=== PATIENT | male | born 1965 ===

== ENCOUNTER → 2020-09-14 | Outpatient (CLI) | LOC: LABNPT 11:04 | PROVIDERS: ATTEND Internal Medicine | DX: Z20.822 Contact with and (suspected) exposure to COVID-19 (principal) | CPT/HCPCS: 87636 ==

== ENCOUNTER 2021-08-28 11:47 | Inpatient (IN) | payer SELFPAY ==
[~2021-08-28] VITALS: Ht 172.7 cm; Wt 78.8 kg
[2021-08-28] VITALS (11 sets, daily range): BP systolic 137–156; BP diastolic 81–97
[2021-08-28] MEDS ORDERED: diphenhydrAMINE 50 MG/ML INJ (BENADRYL) IVP PRN (12:00)
[2021-08-28] MEDS ORDERED: NS IV 1000 ML 1,000 ML IV SCH (12:00)
[2021-08-28] MEDS ORDERED: ONDANSETRON 4 MG/2 ML (SDV) Z0FRAN IV PRN (12:00)
[2021-08-28] MEDS ORDERED: LIDOCAINE/EPI 2% 1:200,00 (XYLOCAINE) 10 ML VIAL ONE (13:44)
--- NOTE | 2021-08-28 13:45 | Consultation - Surgery ---
History of Present Illness History of Present Illness Patient Consulted On(prabhjot/time) 08/28/21 13:39 Date Seen by Provider: Aug 28, 2021 Time Seen by Provider: 13:42 History of Present Illness Consult requested by Dr. Aguilar for perforated sigmoid diverticulitis with abscess. Patient is a 55 year old male at [facility]. Was doing well with conservative measures. Had worsening pain overnight. His wbc increased to 14 K. Patient was on clear liquids and just advanced to soft diet. Patient currently NPO. Pain in the Llq sharp. No radiation of pain. Not feeling well. Having some nausea and an episode of small bilious emesis. Ct scan done showing severe diverticulitis with abscess. Patient agreeable to surgery so had to be transferred to [place]. Allergies and Home Medications Allergies Coded Allergies: No Known Drug Allergies (Unverified , 08/28/21) Patient Home Medication List Home Medication List Reviewed: Yes Past Cqjpazl-Jpgmbd-Ralhxk Hx Patient Social History Smoking Status: Never a Smoker Alcohol Use?: Yes Have you traveled recently?: No Surgeries History of Surgeries: Yes (neck surgery) Respiratory History of Respiratory Disorde: No Cardiovascular History of Cardiac Disorders: No Neurological History of Neurological Disord: No Genitourinary History of Genitourinary Disor: No Gastrointestinal History of Gastrointestinal Di: No Musculoskeletal History of Musculoskeletal Dis: No Endocrine History of Endocrine Disorders: No HEENT History of HEENT Disorders: No Cancer History of Cancer: No Psychosocial History of Psychiatric Problem: No Integumentary History of Skin or Integumenta: No Reviewed Nursing Assessment Reviewed/Agree w Nursing PMH: Yes Family Medical History Significant Family History: No Pertinent Family Hx Review of Systems-General Constitutional: No diaphoresis, No weakness EENTM: No blurred vision, No double vision, No mouth pain Respiratory: No cough, No short of breath Cardiovascular: No chest pain, No palpitations Gastrointestinal: abdominal pain (LLQ), nausea, vomiting Genitourinary: No decreased output, No discharge Musculoskeletal: No back pain, No joint pain Skin: No change in color, No change in hair/nails Psychiatric/Neurological: Denies Anxiety, Denies Depressed, Denies Emotional Problems Physical Exam-General Problems Physical Exam Vital Signs Capillary Refill : General Appearance: WD/WN, no apparent distress (but uncomfortable) HEENT: PERRL/EOMI, normal ENT inspection Neck: non-tender, supple Respiratory: chest non-tender, no respiratory distress, no accessory muscle use Cardiovascular: regular rate, rhythm, no JVD Gastrointestinal: soft, tenderness (significant tenderness llq) Back: normal inspection, no CVA tenderness Extremities: normal range of motion, normal inspection, no pedal edema 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 He and understand risks and benefits and wishes to proceed. Clinical Quality Measures DVT/VTE Risk/Contraindication: Contraindications-Pharm: Other *list below* Other: or WEI LADD DO Aug 28, 2021 13:45
[2021-08-28] MEDS ORDERED: ONDANSETRON 4 MG/2 ML (SDV) Z0FRAN ONE (13:54)
[2021-08-28] MEDS ORDERED: proPOfol 200 MG/20 ML (DIPRIVAN) VIAL IV ONE (13:54)
[2021-08-28] MEDS ORDERED: LIDOCAINE PF 2% 5 ML (XYLOCAINE) VIAL ONE (13:54)
[2021-08-28] MEDS ORDERED: SUCCINYLCHOLINE INJ 20 MG/1 ML 10 ML VIAL ONE (13:54)
[2021-08-28] MEDS ORDERED: fentaNYL INJ 100 MCG/2 ML AMP ONE (13:54)
[2021-08-28] MEDS ORDERED: MIDAZOLAM 2 MG/2 ML (VERSED) VIAL ONE (13:54)
[2021-08-28] MEDS ORDERED: ROCURONIUM 50 MG/5 ML (ZEMURON) VIAL IV ONE (13:54)
[2021-08-28] MEDS: LACTATED RINGERS 1,000 ML IV PRN ×3 (14:08→16:44)
[2021-08-28] MEDS ORDERED: BUPIVACAINE 0.5% 30 ML (SENSORCAINE) VIAL ONE (16:11)
[2021-08-28] MEDS ORDERED: NEOSTIGMINE 3 MG/3 ML VIAL ONE (16:17)
[2021-08-28] MEDS ORDERED: GLYCOPYRROLATE 0.2 MG/ML (ROBINUL) 2 ML VIAL ONE (16:17)
[2021-08-28] MEDS ORDERED: RT-ALBUTEROL SULF 2.5 MG/3 ML PRE-MIX VIAL INH PRN (17:00)
[2021-08-28] MEDS ORDERED: SEVOFLURANE (ULTANE) 15 ML INHAL SOLN ONE (17:01)
[2021-08-28] MEDS ORDERED: MEPERIDINE (DEMEROL) INJ 50 MG/ML IVP ONE (17:15)
[2021-08-28] MEDS ORDERED: morphine INJ 10 MG/ML 1ML (SYR OR VIAL) IVP ONE (17:15)
[2021-08-28] MEDS ORDERED: ONDANSETRON 4 MG/2 ML (SDV) Z0FRAN IVP PRN (17:15)
[2021-08-28] MEDS ORDERED: PROMETHAZINE INJ 25 MG/ML (PHENERGAN) AMP IVP ONE (17:15)
[2021-08-28] MEDS ORDERED: HYDROmorphone 2 MG/ML VIAL (DILAUDID) IV ONE (17:15)
--- NOTE | 2021-08-28 17:18 | Progress Note-Post Operative ---
Post-Operative Progess Note Surgeon (s)/Conflicts Analyst (s) Surgeon WEI LADD DO Conflicts Analyst: na Pre-Operative Diagnosis perforated diverticulitis of sigmoid with abscess Post-Operative Diagnosis same Procedure & Operative Findings Date of Procedure 08/28/21 Procedure Performed/Findings laparoscopic hand assisted Jarvis procedure Anesthesia Type general Estimated Blood Loss Estimated blood loss (mL): minimal Specimens/Packing Specimens Removed sigmoid colon WEI LADD DO Aug 28, 2021 17:18
[2021-08-28] MEDS: LACTATED RINGERS 1,000 ML IV SCH (19:25)
[2021-08-28] MEDS: PIPERACILLIN SODIUM/TAZOBACTAM 4.5 GM in NS (IVPB) 100 ML IV SCH (19:27)
--- NOTE | 2021-08-28 19:46 | History & Physical ---
History of Present Illness HPI/Chief Complaint CC: Peritoneal abscess with sigmoid colon severe diverticulitis HPI: This is a 55yo male clinic patient of mine who has a h/o kidney stones and allergies who presents from [facility] with peritoneal abscesses found on repeat CT at [facility] following a 6 days hospital stay for severe diverticulitis with perforation. IV Zosyn and Flagyl had been maintained along with IVF and IV abx and NPO status with recent improvement until he began eating soft diet and pain returned and wbc increased prompting CT scan which revealed the abscesses. Options were IR placement of drain versus open procedure with wash out and sigmoidectomy and the decision was made to transfer to [facility] due to no OR crew at [facility] for stated surgery by Dr Rodriguez. Patient was seen following his surgery and he is stable. O x 3. Source: patient Exam Limitations: no limitations Date Seen 08/28/21 Time Seen by a Provider: 18:30 Attending Physician Maria L Aguilar DO PCP Admitting Physician: Maria L Aguilar DO Attending Physician: Maria L Aguilar DO Referring Physician Date of Admission Aug 28, 2021 at 13:20 Home Medications & Allergies Home Medications Reviewed patient Home Medication Reconciliation performed by pharmacy medication reconciliations compressor technician and/or nursing. Patients Allergies have been reviewed. 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 oz. kg; 26.42 BMI Method: General Appearance: No Apparent Distress, WD/WN Eyes: Bilateral Eye Normal Inspection, Bilateral Eye PERRL HEENT: PERRL/EOMI, Normal ENT Inspection, Pharynx Normal Neck: Full Range of Motion, Normal Inspection, Non Tender, Supple, Carotid Bruit Respiratory: Chest Non Tender, Lungs Clear, Normal Breath Sounds, No Accessory Muscle Use, No Respiratory Distress Cardiovascular: Regular Rate, Rhythm, No Edema, No Gallop, No JVD, No Murmur, Normal Peripheral Pulses Gastrointestinal: Normal Bowel Sounds, No Organomegaly, No Pulsatile Mass, Tenderness Back: Normal Inspection, No CVA Tenderness, No Vertebral Tenderness Extremity: Normal Capillary Refill, Normal Inspection, Normal Range of Motion, Non Tender, No Calf Tenderness, No Pedal Edema Neurologic/Psychiatric: Alert, Oriented x3, No Motor/Sensory Deficits, Normal Mood/Affect Skin: Normal Color, Warm/Dry Lymphatic: No Adenopathy Results Results/Procedures Labs Patient resulted labs reviewed. Assessment/Plan Admission Diagnosis Assessment: s/p sigmoidectomy with diverting colostomy due to severe diverticulitis recent perforation with abscess formation failed 6 days IVF IV abx Normal colonoscopy 07/2015 Allergies Kidney stones Plan: IVF Bowel rest Pain control Admission Status: Inpatient Order (span 2 midnights) Reason for Inpatient Admission: sigmoidectomy Clinical Quality Measures DVT/VTE Risk/Contraindication: Contraindications-Pharm: Other *list below* Other: or MARIA L AGUILAR DO Aug 28, 2021 19:46
[2021-08-28] MEDS: HYDROmorphone 2 MG/ML VIAL (DILAUDID) IV PRN ×2 (20:02→22:34)
[2021-08-28] MEDS: metroNIDAZOLE 500MG/100ML IVPB 100 ML IV SCH (21:38)
[2021-08-29] MEDS: PIPERACILLIN SODIUM/TAZOBACTAM 4.5 GM in NS (IVPB) 100 ML IV SCH ×3 (00:45→17:10)
[2021-08-29] MEDS: LACTATED RINGERS 1,000 ML IV SCH ×3 (00:46→15:48)
[2021-08-29] MEDS: HYDROmorphone 2 MG/ML VIAL (DILAUDID) IV PRN ×4 (00:50→15:41)
--- NOTE | 2021-08-29 02:16 | OPERATIVE REPORT ---
DATE OF SERVICE: 08/28/2021 PREOPERATIVE DIAGNOSIS: Perforated diverticulitis and sigmoid with abscess. POSTOPERATIVE DIAGNOSIS: Perforated diverticulitis and sigmoid with abscess. PROCEDURE: Laparoscopic hand-assisted Kierra procedure. SURGEON: Wei Rodriguez DO ANESTHESIA: General. ESTIMATED BLOOD LOSS: Minimal. COMPLICATIONS: None. INDICATIONS: The patient is a 55-year-old male who failed conservative management of perforated diverticulitis. He had worsening pain and increasing white count at outside facility and on repeat CT scan had large abscess. The patient was discussed options and he wished to proceed with surgical intervention. He understands and wishes to proceed along with his family, consent was signed in the chart. DESCRIPTION OF PROCEDURE: The patient was taken to the operating suite, was prepped and draped in sterile fashion. Timeout was performed. A midline incision was made for a hand port placement. A 15-blade scalpel was used to make a skin incision and cautery used to dissect down through the subcutaneous tissues. The fascia was then scored and opened and the hand port was then inserted. Pneumoperitoneum was achieved. Under direct visualization of the laparoscope, a 12 mm trocar was placed in the right lower quadrant and a 12 mm trocar was placed in left lower quadrant. Large phlegmon at the sigmoid colon with adhesions along the left gutter. Blunt dissection was used to gently mobilize these adhesions and a small abscess was drained. Distal to the phlegmon and abscess of the sigmoid colon, at the rectosigmoid junction, the colon was then bluntly dissected around. An Endo[employer] stapler was then fired across the distal portion of the colon. The colon was then mobilized along the white line of Toldt along the right gutter. We came proximal to a sigmoid perforation area, the colon was then dissected around and Endo-[employer] stapler was then fired across the proximal portion. LigaSure was then used to divide the mesentery until the phlegmonous mass and sigmoid colon were able to be removed, which demonstrated a large perforation with abscess cavity. The abdomen was then irrigated with copious amounts of irrigation. The left lower quadrant trocar site was then transformed to the colostomy site, skin and subcutaneous tissue was removed down to the fascia, which was then scored in a cruciate fashion. The muscle was divided and the posterior fascia was then divided. The colostomy end was then brought out through the colostomy site. A 19 Ayo drain was placed in the pelvis and brought out through the right lower quadrant trocar site. The fascia was then closed using 1-0 looped PDS once irrigation was used to irrigate the wound and skin was then loosely approximated. The 10 drape was then placed and the colostomy was then matured using 3-0 Vicryl sutures. The abdomen was then washed and dried. The colostomy appliance was applied. Sterile bandages were applied. The patient was taken to recovery room in stable condition. Job ID: [id number] DocumentID: [id number] Dictated Date: 08/28/2021 17:24:16 Reservation Manager Date: 08/29/2021 02:15:03 Dictated By: WEI RODRIGUEZ DO
[2021-08-29 03:00] VITALS: BP 126/84
[2021-08-29] MEDS: metroNIDAZOLE 500MG/100ML IVPB 100 ML IV SCH ×2 (05:12→15:47)
--- NOTE | 2021-08-29 06:07 | Progress Note ---
Subjective Date Seen by a Provider: Aug 29, 2021 Time Seen by a Provider: 10:00 Subjective/Events-last exam Patient doing well Pain controlled Horn will be DC today once he ambulates No nausea Labs reviewed Updated meds and labs Review of Systems Gastrointestinal: Abdominal Pain Objective Exam Last Set of Vital Signs Vital Signs Date Time Temp Pulse Resp B/P (MAP) Pulse Ox O2 Delivery O2 Flow Rate FiO2 08/29/21 03:00 36.5 68 18 126/84 (98) 93 Room Air 08/28/21 20:15 0.00 Capillary Refill : I&O Intake and Output 08/29/21 00:00 Intake Total 2100 ml Output Total 1660 ml Balance 440 ml Intake Oral 0 ml IV Total 2100 ml Output Urine Total 1500 ml Drainage Total 160 ml Daily Weight Change No General: Alert, Oriented X3, Cooperative, No Acute Distress Lungs: Clear to Auscultation, Normal Air Movement Heart: Regular Rate, Normal S1, Normal S2, No Murmurs Psych/Mental Status: Mental Status NL, Mood NL Assessment/Plan Assessment/Plan Assess & Plan/Chief Complaint Assessment: s/p sigmoidectomy with diverting colostomy POD # 1 due to severe diverticulitis recent perforation with abscess formation failed 6 days IVF IV abx Normal colonoscopy 07/2015 Allergies Kidney stones Plan: IVF Bowel rest Pain control Lovenox Clinical Quality Measures DVT/VTE Risk/Contraindication: Contraindications-Pharm: Other *list below* Other: or MARIBEL HILTON DO Aug 29, 2021 06:07
[2021-08-29 06:35] LABS: BASOPHILS % (AUTO) 0 % (0-10); EOSINOPHILS % (AUTO) 0 % (0-10); HEMATOCRIT 41 % (40-54); HEMOGLOBIN 14.3 g/dL (13.3-17.7); LYMPHOCYTES # (AUTO) 1.3 10^3/uL (1.0-4.0); LYMPHOCYTES % (AUTO) 8 % (12-44); MEAN CORPUSCULAR HEMOGLOBIN 32 pg (25-34); MEAN CORPUSCULAR HGB CONC 35 g/dL (32-36); MEAN CORPUSCULAR VOLUME 92 fL (80-99); MEAN PLATELET VOLUME 10.4 fL (9.0-12.2); MONOCYTES % (AUTO) 6 % (0-12); NEUTROPHILS # (AUTO) 13.2 10^3/uL (1.8-7.8); NEUTROPHILS % (AUTO) 85 % (42-75); PLATELET COUNT 261 10^3/uL (130-400); WHITE BLOOD COUNT 15.6 10^3/uL (4.3-11.0)
[2021-08-29 06:47] LABS: POTASSIUM 4.3 MMOL/L (3.6-5.0)
[2021-08-29 06:49] LABS: CALCIUM 8.5 MG/DL (8.5-10.1)
[2021-08-29 06:50] LABS: TOTAL PROTEIN 5.6 GM/DL (6.4-8.2)
[2021-08-29 06:52] LABS: BILIRUBIN,TOTAL 0.6 MG/DL (0.1-1.0)
[2021-08-29 06:53] LABS: CREATININE SERUM 0.8 MG/DL (0.60-1.30)
[2021-08-29 07:02] LABS: ATYPICAL LYMPHOCYTES 2 %; BAND NEUTROPHILS 1 %; LYMPHOCYTES % (MANUAL) 3 %; MONOCYTES % (MANUAL) 4 %; NEUTROPHILS % (MANUAL) 90 %
[2021-08-29 07:04] LABS: RBC MORPH NORMAL
[2021-08-29 07:49] VITALS: BP 131/79
[2021-08-29 12:05] VITALS: BP 122/77
--- NOTE | 2021-08-29 14:27 | Progress Note - Surgery ---
Subjective Date Seen by a Provider: Aug 29, 2021 Time Seen by a Provider: 09:15 Subjective/Events-last exam Patient feel a bit better today. Having postoperative pain. Pain is fairly controlled. He is using incentive spirometer. Adequate urine output. Denies any nausea vomiting fever sweats chills shortness of breath or chest pain. No output from colostomy yet. Drain serosanguineous Objective Exam Vital Signs Date Time Temp Pulse Resp B/P (MAP) Pulse Ox O2 Delivery O2 Flow Rate FiO2 08/29/21 12:05 36.4 69 18 122/77 (92) 96 Room Air 08/29/21 07:49 36.6 66 18 131/79 (96) 96 Room Air 08/29/21 07:47 Room Air 08/29/21 03:00 36.5 68 18 126/84 (98) 93 Room Air 08/28/21 23:17 37.4 96 20 137/81 (99) 94 Room Air 08/28/21 20:15 93 Room Air 0.00 08/28/21 20:12 Room Air 08/28/21 19:53 37.8 86 20 154/92 (112) 95 Room Air 08/28/21 18:11 37.2 96 19 145/83 (103) 92 Room Air 08/28/21 18:05 Room Air 08/28/21 17:57 20 151/93 (112) 93 Room Air 08/28/21 17:47 36.9 20 152/90 (110) 94 Room Air 08/28/21 17:37 17 156/90 (112) 99 OxyMask 10 08/28/21 17:36 OxyMask 10 08/28/21 17:27 20 153/97 (115) 96 OxyMask 10 08/28/21 17:17 18 151/96 (114) 97 OxyMask 10 08/28/21 17:07 36.3 24 147/82 (103) 95 OxyMask 10 08/28/21 17:07 OxyMask 10 08/28/21 16:44 36.6 73 96 08/28/21 16:00 Room Air I & O 08/29/21 07:00 Intake Total 3500 ml Output Total 2655 ml Balance 845 ml Capillary Refill : General Appearance: No Apparent Distress, WD/WN HEENT: PERRL/EOMI, Normal ENT Inspection, Pharynx Normal Neck: Full Range of Motion, Normal Inspection, Non Tender, Supple Respiratory: Chest Non Tender, Lungs Clear, No Accessory Muscle Use, No Respiratory Distress Cardiovascular: Regular Rate, Rhythm, No JVD, Normal Peripheral Pulses Gastrointestinal: soft, tenderness (Incisional tenderness in left lower quadrant, colostomy pink serous output minimal) Extremity: Normal Capillary Refill, Normal Inspection, Normal Range of Motion, Non Tender, No Calf Tenderness, No Pedal Edema Neurologic/Psychiatric: Alert, Oriented x3, No Motor/Sensory Deficits, Normal Mood/Affect Skin: Normal Color, Warm/Dry Lymphatic: No Adenopathy Results Lab Laboratory Tests 08/29/21 06:22: White Blood Count 15.6H, Red Blood Count 4.49, Hemoglobin 14.3, Hematocrit 41, Mean Corpuscular Volume 92, Mean Corpuscular Hemoglobin 32, Mean Corpuscular Hemoglobin Concent 35, Red Cell Distribution Width 12.5, Platelet Count 261, Mean Platelet Volume 10.4, Immature Granulocyte % (Auto) 0, Neutrophils (%) (Auto) 85H, Lymphocytes (%) (Auto) 8L, Monocytes (%) (Auto) 6, Eosinophils (%) (Auto) 0, Basophils (%) (Auto) 0, Neutrophils # (Auto) 13.2H, Lymphocytes # (Auto) 1.3, Monocytes # (Auto) 1.0, Eosinophils # (Auto) 0.0, Basophils # (Auto) 0.0, Immature Granulocyte # (Auto) 0.1, Neutrophils % (Manual) 90, Lymphocytes % (Manual) 3, Monocytes % (Manual) 4, Band Neutrophils 1, Atypical Lymphocytes 2, Blood Morphology Comment NORMAL, Sodium Level 137, Potassium Level 4.3, Chloride Level 104, Carbon Dioxide Level 23, Anion Gap 10, Blood Urea Nitrogen 12, Creatinine 0.80, Estimat Glomerular Filtration Rate 103, BUN/Creatinine Ratio 15, Glucose Level 115H, Calcium Level 8.5, Corrected Calcium 9.3, Total Bilirubin 0.6, Aspartate Amino Transf (AST/SGOT) 15, Alanine Aminotransferase (ALT/SGPT) 13, Alkaline Phosphatase 48, Total Protein 5.6L, Albumin 3.0L Microbiology 08/28/21 MRSA Screen - Final, Complete MRSA not isolated Assessment/Plan Assessment/Plan Assessment/Plan perforated sigmoid diverticulitis with abscess nausea and vomiting llq abdominal pain Is post laparoscopic hand-assisted Jarvis Clears IV fluids Continue IV abx Incentive spirometer SCDs Ambulate [facility] Quality Measures DVT/VTE Risk/Contraindication: Contraindications-Pharm: Other *list below* Other: or WEI LADD DO Aug 29, 2021 14:27
--- NOTE | 2021-08-29 14:31 | Anesthesia-General Post-Op ---
General Patient Condition Mental Status/LOC: Same as Preop Cardiovascular: Satisfactory Nausea/Vomiting: Absent Respiratory: Satisfactory Pain: Controlled Complications: Absent Post Op Complications Complications None Follow Up Care/Instructions Patient Instructions None needed. Anesthesia/Patient Condition Patient Condition Patient is doing well, no complaints, stable vital signs, no apparent adverse anesthesia problems. No complications reported per nursing. ARMAND ZAMAN CRNA Aug 29, 2021 14:31
[2021-08-29] MEDS: HYDROcodone/APAP 5 MG/325 MG (LORTAB) TAB PO PRN ×2 (17:31→21:01)
[2021-08-29 19:44] VITALS: BP 142/85
--- NOTE | 2021-08-29 20:30 | Discharge Summary ---
Diagnosis/Chief Complaint Date of Admission Aug 28, 2021 at 13:20 Date of Discharge Discharge Date: Aug 29, 2021 Discharge Diagnosis Assessment: s/p sigmoidectomy with diverting colostomy due to severe diverticulitis recent perforation with abscess formation failed 6 days IVF IV abx Normal colonoscopy 07/2015 Allergies Kidney stones Discharge Summary Discharge Physical Examination Allergies: Coded Allergies: No Known Drug Allergies (Unverified , 08/28/21) Vitals & I&Os Vital Signs Date Time Temp Pulse Resp B/P (MAP) Pulse Ox O2 Delivery O2 Flow Rate FiO2 08/29/21 19:44 36.6 71 20 142/85 (104) 95 Room Air 08/29/21 19:11 0.00 General Appearance: Alert, Oriented X3, Cooperative Respiratory: Clear to Auscultation Cardiovascular: Regular Rate Psych/Mental Status: Mental Status NL Hospital Course Was the Problem List Reviewed?: Yes Short course after admitted following sigmoidectomy with abscess resolution by Dr Rodriguez. Pain was an issue but IVF and IV Abx maintained. Patient was deemed stable to return to [facility] at his request. Labs (last 24 hrs) Laboratory Tests 08/29/21 06:22: White Blood Count 15.6H, Red Blood Count 4.49, Hemoglobin 14.3, Hematocrit 41, Mean Corpuscular Volume 92, Mean Corpuscular Hemoglobin 32, Mean Corpuscular Hemoglobin Concent 35, Red Cell Distribution Width 12.5, Platelet Count 261, Mean Platelet Volume 10.4, Immature Granulocyte % (Auto) 0, Neutrophils (%) (Auto) 85H, Lymphocytes (%) (Auto) 8L, Monocytes (%) (Auto) 6, Eosinophils (%) (Auto) 0, Basophils (%) (Auto) 0, Neutrophils # (Auto) 13.2H, Lymphocytes # (Auto) 1.3, Monocytes # (Auto) 1.0, Eosinophils # (Auto) 0.0, Basophils # (Auto) 0.0, Immature Granulocyte # (Auto) 0.1, Neutrophils % (Manual) 90, Lymphocytes % (Manual) 3, Monocytes % (Manual) 4, Band Neutrophils 1, Atypical Lymphocytes 2, Blood Morphology Comment NORMAL, Sodium Level 137, Potassium Level 4.3, Chloride Level 104, Carbon Dioxide Level 23, Anion Gap 10, Blood Urea Nitrogen 12, Creatinine 0.80, Estimat Glomerular Filtration Rate 103, BUN/Creatinine Ratio 15, Glucose Level 115H, Calcium Level 8.5, Corrected Calcium 9.3, Total Bilirubin 0.6, Aspartate Amino Transf (AST/SGOT) 15, Alanine Aminotransferase (ALT/SGPT) 13, Alkaline Phosphatase 48, Total Protein 5.6L, Albumin 3.0L Microbiology 08/28/21 MRSA Screen - Final, Complete MRSA not isolated Pending Labs Microbiology Date/Time Source Procedure Growth Status 08/28/21 13:40 Nasal MRSA Screen - Final MRSA not isolated Complete Laboratory Tests 08/29/21 06:22: White Blood Count 15.6, Red Blood Count 4.49, Hemoglobin 14.3, Hematocrit 41, Mean Corpuscular Volume 92, Mean Corpuscular Hemoglobin 32, Mean Corpuscular Hemoglobin Concent 35, Red Cell Distribution Width 12.5, Platelet Count 261, Mean Platelet Volume 10.4, Immature Granulocyte % (Auto) 0, Neutrophils (%) (Auto) 85, Lymphocytes (%) (Auto) 8, Monocytes (%) (Auto) 6, Eosinophils (%) (Auto) 0, Basophils (%) (Auto) 0, Neutrophils # (Auto) 13.2, Lymphocytes # (Auto) 1.3, Monocytes # (Auto) 1.0, Eosinophils # (Auto) 0.0, Basophils # (Auto) 0.0, Immature Granulocyte # (Auto) 0.1, Neutrophils % (Manual) 90, Lymphocytes % (Manual) 3, Monocytes % (Manual) 4, Band Neutrophils 1, Atypical Lymphocytes 2, Blood Morphology Comment NORMAL, Sodium Level 137, Potassium Level 4.3, Chloride Level 104, Carbon Dioxide Level 23, Anion Gap 10, Blood Urea Nitrogen 12, Creatinine 0.80, Estimat Glomerular Filtration Rate 103, BUN/Creatinine Ratio 15, Glucose Level 115, Calcium Level 8.5, Corrected Calcium 9.3, Total Bilirubin 0.6, Aspartate Amino Transf (AST/SGOT) 15, Alanine Aminotransferase (ALT/SGPT) 13, Alkaline Phosphatase 48, Total Protein 5.6, Albumin 3.0 Discharge Instructions to patient/family Please see electronic discharge instructions given to patient. Clinical Quality Measures DVT/VTE Risk/Contraindication: Contraindications-Pharm: Other *list below* Other: or MARIBEL HILTON DO Aug 29, 2021 20:30
[2021-08-29] MEDS ORDERED: HYDROmorphone 2 MG/ML VIAL (DILAUDID) IV ONE (20:45)
[2021-08-29] MEDS ORDERED: ENOXAPARIN 40 MG/0.4 ML (LOVENOX) SYR SC SCH (21:00)
[2021-08-29 21:50] VITALS: BP 142/85
== END 2021-08-29 21:45 | disposition short-term general hospital (02) | DRG 331 ==
LOC: 4TH 13:20
PROVIDERS: ADMIT Internal Medicine; ATTEND Internal Medicine
PROC: 0DBN4ZZ Excision of Sigmoid Colon, Percutaneous Endoscopic Approach (ICD-10-PCS; principal; 2021-08-28 14:12)
DX: K57.20 Diverticulitis of large intestine with perforation and abscess without bleeding (principal); N20.0 Calculus of kidney
CPT/HCPCS: 36415; 80053; 85007; 85027; 87081; 94664; 94760

== ENCOUNTER 2021-11-17 05:39 | Outpatient (CLI) | payer SELFPAY ==
[~2021-11-17] VITALS: Ht 172.7 cm; Wt 72.6 kg
[2021-11-17] MEDS ORDERED: CETI10CA PO (12:03)
== END 2021-11-17 12:05 | disposition home or self-care (01) ==
LOC: PREOP 05:39
PROVIDERS: ATTEND Surgery
DX: Z01.818 Encounter for other preprocedural examination (principal)

== ENCOUNTER 2021-11-30 09:01 | Day surgery (SDC) | payer SELFPAY ==
[~2021-11-30] VITALS: Ht 172.7 cm; Wt 72.6 kg
[~2021-11-30 09:01] MED LIST: CETI10CA PO
[2021-11-30] MEDS ORDERED: LACTATED RINGERS 1,000 ML IV STA (09:06)
[2021-11-30 09:15] VITALS: BP 150/104
[2021-11-30] MEDS ORDERED: FLEET ENEMA ADULT 1 EA BTL ONE (09:30)
[2021-11-30] MEDS ORDERED: FLEET ENEMA ADULT 1 EA BTL PR ONE (09:45)
[2021-11-30] MEDS ORDERED: PROPOFOL INJECTION 50 ML IV ONE (10:54)
--- NOTE | 2021-11-30 11:19 | Anesthesia-General Post-Op ---
MAC Patient Condition Mental Status/LOC: Same as Preop Cardiovascular: Satisfactory Nausea/Vomiting: Absent Respiratory: Satisfactory Pain: Controlled Complications: Absent Post Op Complications Complications None Follow Up Care/Instructions Patient Instructions None needed. Anesthesiology Discharge Order Discharge Order Patient is doing well, no complaints, stable vital signs, no apparent adverse anesthesia problems. No complications reported per nursing. MARIA D GARCIA CRNA Nov 30, 2021 11:19
--- NOTE | 2021-11-30 11:20 | Discharge Inst-Simple/Standard ---
Discharge Inst-Standard Patient Instructions/Follow Up Plan of Care/Instructions/FU: 1-2 weeks Jennifer Activity as Tolerated: Yes Discharge Diet: Regular Diet WEI LADD DO Nov 30, 2021 11:20
[2021-11-30 11:23] VITALS: BP 117/79
[2021-11-30 11:28] VITALS: BP 122/82
[2021-11-30 11:35] VITALS: BP 122/82
[2021-11-30 11:49] VITALS: BP 122/82
--- NOTE | 2021-11-30 18:23 | OPERATIVE REPORT ---
DATE OF SERVICE: 11/30/2021 PREOPERATIVE DIAGNOSIS: History of diverticulitis. POSTOPERATIVE DIAGNOSIS: Normal colon. PROCEDURE: Colonoscopy. SURGEON: Wei Rodriguez DO ANESTHESIA: Per SPRAY FOAM INSTALLER. ESTIMATED BLOOD LOSS: None. COMPLICATIONS: None. INDICATIONS: The patient is a 56-year-old male who had perforated diverticulitis. He had Kierra procedure. He is planning on having reversal. We discussed having a colonoscopy performed. He understands and wishes to proceed. Consent was signed in the chart. DESCRIPTION OF PROCEDURE: The patient was taken to the endoscopy suite, placed in the supine position. The timeout was performed. The digital rectal exam was performed through the ostomy in order to dilate the ostomy. Scope was then inserted into the colostomy and advanced all the way to cecum with minimal difficulty. Prep was adequate. Scope was slowly retracted back. No polyps, masses or ulcerations within the cecum, ascending, transverse, descending and sigmoid colon. Digital rectal exam was performed. No palpable polyps, masses or ulcerations. Scope was inserted in the rectum and advanced all the way to the end of the rectal stump. There was some nonuse colitis appearance and also irritation from the enema. Scope was slowly retracted back noting no polyps, masses or ulcerations. The patient tolerated the procedure well without any complications, taken to recovery room in stable condition. RECOMMENDATIONS: The patient will have reversal planned. We would plan repeat colonoscopy in 5-10 years depending upon if he has family history of colon cancer, personal history of polyps, which would then be 5 years. Job ID: [id number] DocumentID: [id number] Dictated Date: 11/30/2021 11:24:10 Document Clerk Date: 11/30/2021 18:22:51 Dictated By: WEI RODRIGUEZ DO
== END 2021-11-30 12:00 | disposition home or self-care (01) ==
LOC: ENDO 09:01
PROVIDERS: ATTEND Surgery
DX: Z87.19 Personal history of other diseases of the digestive system (principal)

== ENCOUNTER 2021-12-30 05:30 | Outpatient (CLI) | payer SELFPAY ==
[~2021-12-30] VITALS: Ht 172.7 cm; Wt 77.0 kg
== END 2021-12-30 13:41 | disposition home or self-care (01) ==
LOC: PREOP 05:30
PROVIDERS: ATTEND Surgery
DX: Z01.818 Encounter for other preprocedural examination (principal)

== ENCOUNTER 2022-01-06 06:49 | Inpatient (IN) | payer SELFPAY ==
[2022-01-06] VITALS (11 sets, daily range): BP systolic 125–164; BP diastolic 66–109
[~2022-01-06] VITALS: Ht 172 cm; Wt 74.8 kg
[2022-01-06] MEDS ORDERED: metroNIDAZOLE 500MG/100ML IVPB 100 ML IV ONE (07:15)
[2022-01-06] MEDS ORDERED: ceFAZolin INJECTION 2,000 MG in NS (IVPB) 50 ML IV ONE (07:15)
[2022-01-06] MEDS: LACTATED RINGERS 1,000 ML IV PRN ×3 (07:30→12:00)
[2022-01-06] MEDS ORDERED: fentaNYL INJ 100 MCG/2 ML AMP ONE (08:23)
[2022-01-06] MEDS ORDERED: MIDAZOLAM 2 MG/2 ML (VERSED) VIAL ONE (08:24)
--- NOTE | 2022-01-06 08:30 | Progress Note-Pre Operative ---
Pre-Operative Progress Note Date of Available H&P: Dec 15, 2021 Date H&P Reviewed: Jan 06, 2022 Time H&P Reviewed: 08:29 History & Physical: H&P Reviewed, Patient Examed, No changes noted Pre-Operative Diagnosis: Colostomy. Hx of perferated diverticulitis WEI LADD DO Jan 06, 2022 08:30
[2022-01-06] MEDS ORDERED: LIDOCAINE/EPI 1%-1:100,000 (XYLOCAINE) 10 ML ONE (08:39)
[2022-01-06] MEDS ORDERED: proPOfol 200 MG/20 ML (DIPRIVAN) VIAL IV ONE (09:00)
[2022-01-06] MEDS ORDERED: ONDANSETRON 4 MG/2 ML (SDV) Z0FRAN ONE (09:00)
[2022-01-06] MEDS ORDERED: LIDOCAINE PF 2% 5 ML (XYLOCAINE) VIAL ONE (09:00)
[2022-01-06] MEDS ORDERED: HYDROmorphone 2 MG/ML VIAL (DILAUDID) ONE (10:26)
[2022-01-06] MEDS ORDERED: ROCURONIUM 10 MG/ML 5 ML SYRINGE IV ONE (10:58)
[2022-01-06] MEDS ORDERED: SEVOFLURANE (ULTANE) 15 ML INHAL SOLN ONE (11:54)
[2022-01-06] MEDS ORDERED: GLYCOPYRROLATE 0.2 MG/ML (ROBINUL) 2 ML VIAL ONE ×2 (12:01→12:02)
[2022-01-06] MEDS ORDERED: NEOSTIGMINE (BLOXIVERZ ) 1 MG/1ML 10 ML VIAL ONE (12:01)
[2022-01-06] MEDS: LACTATED RINGERS 1,000 ML IV SCH ×2 (12:23→19:51)
--- NOTE | 2022-01-06 12:29 | Anesthesia-General Post-Op ---
General Patient Condition Mental Status/LOC: Same as Preop Cardiovascular: Satisfactory Nausea/Vomiting: Absent Respiratory: Satisfactory Pain: Controlled Complications: Absent Post Op Complications Complications None Follow Up Care/Instructions Patient Instructions None needed. Anesthesia/Patient Condition Patient Condition Patient is doing well, no complaints, stable vital signs, no apparent adverse anesthesia problems. No complications reported per nursing. LESLEE NORWOOD CRNA Jan 06, 2022 12:29
[2022-01-06] MEDS ORDERED: ONDANSETRON 4 MG/2 ML (SDV) Z0FRAN IVP PRN ×2 (12:30→12:45)
[2022-01-06] MEDS ORDERED: fentaNYL INJ 100 MCG/2 ML AMP IVP ONE (12:45)
[2022-01-06] MEDS ORDERED: HYDROmorphone 2 MG/ML VIAL (DILAUDID) IV ONE (12:45)
[2022-01-06] MEDS: metroNIDAZOLE 500MG/100ML IVPB 100 ML IV SCH ×2 (14:55→22:31)
[2022-01-06] MEDS: morphine INJ 4 MG/ML 1 ML (VIAL/SYRINGE) IVP PRN ×2 (15:22→20:09)
[2022-01-06] MEDS: ceFAZolin INJECTION 2,000 MG in NS (IVPB) 50 ML IV SCH ×2 (16:07→22:48)
[2022-01-06] MEDS: HYDROcodone/APAP 5 MG/325 MG (LORTAB) TAB PO PRN ×2 (17:09→22:30)
[2022-01-07] VITALS: BP 124/66
--- NOTE | 2022-01-07 01:15 | OPERATIVE REPORT ---
DATE OF SERVICE: 01/06/2022 PREOPERATIVE DIAGNOSES: Possible sigmoid stricture. POSTOPERATIVE DIAGNOSES: Mild sigmoid stricture. PROCEDURE: Flexible sigmoidoscopy. SURGEON: Oz Ackerman DO [employer] SALES REPRESENTATIVE: None. ANESTHESIA: The patient was already undergoing procedure. SPECIMENS: None. BLOOD LOSS: Scant. INDICATION FOR PROCEDURE: The patient is a 56-year-old male who was in the operating room for colostomy reversal. We were having difficulty getting the dilators up and through the sigmoid to be able to do the anastomosis; therefore, needed a flexible sigmoidoscopy to look at this. FINDINGS: The patient had some mild stricturing just from the nonuse of this portion of the colon. PROCEDURE NOTE: The patient was already in the OR getting procedure done, we had called endoscopy crew up to bring the scope, so we could do a sigmoidoscopy and look at this area, for a while we were unable to get the dilators up, attempted 25 and even 28 and could not even get the 25 up to the end of the sigmoid colon. Advanced the scope insufflating, able to get to the end, could see the end and actually see one of the elmer. Dr. Rodriguez could see the light from the scope. It was pretty much straight shot and did have a little bit of a curve to the right and then up, but there was nothing blocking, but now we knew the way to insert the dilator, we were able to insert the dilators to finish the procedure. The scope was removed, procedure confirmed and then we actually put the scope back up and took a look at the anastomosis, looked good and there was no leak. Scope was removed and the other procedure was finished. Job ID: [id number] DocumentID: [id number] Dictated Date: 01/06/2022 16:12:37 Senior Linux Engineer Date: 01/07/2022 01:14:11 Dictated By: OZ ACKERMAN DO MTDD
--- NOTE | 2022-01-07 02:49 | OPERATIVE REPORT ---
DATE OF SERVICE: 01/06/2022 PREOPERATIVE DIAGNOSES: Colostomy and history of perforated diverticulitis. POSTOPERATIVE DIAGNOSES: Colostomy and history of perforated diverticulitis. PROCEDURE: Laparoscopic hand-assisted colostomy takedown with end-to-end anastomosis, a 1-hour of lysis of adhesions. SURGEON: Wei Rodriguez DO INDUSTRIAL ENG: Dr. Oz Ackerman, assisted in retraction, dissection and closure. See his dictation for flexible sigmoidoscopy. ANESTHESIA: General. ESTIMATED BLOOD LOSS: Minimal. COMPLICATIONS: None. INDICATIONS: The patient is a 56-year-old male who had a history of perforated diverticulitis and Kierra procedure. He understands risks and benefits of procedure and wished to proceed. Consent was signed in the chart. DESCRIPTION OF PROCEDURE: The patient was taken to the operating suite, was prepped and draped in sterile fashion. Timeout was performed. Local anesthetic was infiltrated in left upper quadrant. Scalpel was used to make a skin incision and cautery used to dissect down through the subcutaneous tissues to the fascia, scored, opened and divided. The muscle was scored in the posterior fascia and divided. The abdomen was then entered. The michelle trocar was inserted and pneumoperitoneum was achieved. Scope was inserted, noting multiple adhesions with small bowel stuck to the abdominal wall. Under direct visualization of the laparoscope, a 5 mm trocar was placed in the right upper quadrant and one was able to be placed in the right lower quadrant. The LigaSure was used to start dividing significant adhesions and had these blunt dissection as well, which took approximately 1 hour. Once all the adhesions were taken down from the abdominal wall, the dissection around the colostomy was then performed fraying it up to the abdominal wall. At this time, attention was then moved to the colostomy, which an elliptical incision was made around the colostomy and cautery used to dissect down through subcutaneous tissues until the colostomy was completely mobilized and freed and the bowel was able to be brought out. The 29 anvil was inserted into the colon and using a linear 55 stapler, the colon was then divided. The anvil was then brought out through the end of the staple line. This was then placed back within the abdomen. The fascia of the colostomy was then closed using 1-0 Prolene in a running fashion. The abdomen was then reinsufflated, had some difficulty getting enough length; therefore, the colon had to be mobilized along the left colon, up to the splenic flexure, which we made a midline incision using a hand Gelport. This also allowed us to mobilize the small bowel that was stuck down within the pelvis. Once adequate length was obtained for the colon to make the anastomosis, Dr. Ackerman went down below and started using dilators, but seemed to have a tight turn. Therefore, he performed flexible sigmoidoscopy. He was then able to do serial dilations and the 29 EEA stapler was inserted and the anastomosis was then created. The pelvis was then filled with fluid, air test was performed demonstrating no leak. The irrigation was then suctioned. The midline incision over the hand port, the fascia was then closed using 0 looped PDS. The wound was then irrigated and suctioned. Scope was then closed with elmer. The abdomen was then reinsufflated. The abdomen was then inspected. No other pathology noted. The skin was then closed using elmer, except for the left upper quadrant, which the fascia was then closed using 0 Vicryl suture in a [id number] fashion, closure, then, the skin was then closed with elmer. The abdomen was washed and dried and Band-Aids were placed over the incisions and sterile bandages. The patient tolerated the procedure well without any complications. He was taken to recovery room in stable condition. Job ID: [id number] DocumentID: [id number] Dictated Date: 01/06/2022 23:47:54 Supervisor Malted Milk Date: 01/07/2022 02:48:24 Dictated By: WEI RODRIGUEZ DO
[2022-01-07 04:02] VITALS: BP 121/60
[2022-01-07] MEDS: LACTATED RINGERS 1,000 ML IV SCH ×4 (04:58→22:05)
[2022-01-07 05:40] LABS: BASOPHILS % (AUTO) 0 % (0-10); EOSINOPHILS % (AUTO) 0 % (0-10); HEMATOCRIT 44 % (40-54); HEMOGLOBIN 15.1 g/dL (13.3-17.7); LYMPHOCYTES # (AUTO) 1.3 10^3/uL (1.0-4.0); LYMPHOCYTES % (AUTO) 9 % (12-44); MEAN CORPUSCULAR HEMOGLOBIN 32 pg (25-34); MEAN CORPUSCULAR HGB CONC 34 g/dL (32-36); MEAN CORPUSCULAR VOLUME 92 fL (80-99); MEAN PLATELET VOLUME 10.3 fL (9.0-12.2); MONOCYTES # (AUTO) 1.5 10^3/uL (0.0-1.0); MONOCYTES % (AUTO) 10 % (0-12); NEUTROPHILS # (AUTO) 11.6 10^3/uL (1.8-7.8); NEUTROPHILS % (AUTO) 80 % (42-75); PLATELET COUNT 180 10^3/uL (130-400); WHITE BLOOD COUNT 14.5 10^3/uL (4.3-11.0)
[2022-01-07 05:56] LABS: ALBUMIN 3.2 GM/DL (3.2-4.5)
[2022-01-07 05:57] LABS: POTASSIUM 4.2 MMOL/L (3.6-5.0)
[2022-01-07 05:58] LABS: CALCIUM 8.3 MG/DL (8.5-10.1)
[2022-01-07 05:59] LABS: TOTAL PROTEIN 5.4 GM/DL (6.4-8.2)
[2022-01-07 06:01] LABS: BILIRUBIN,TOTAL 0.5 MG/DL (0.1-1.0)
[2022-01-07 06:03] LABS: CREATININE SERUM 0.8 MG/DL (0.60-1.30)
[2022-01-07 06:04] LABS: LYMPHOCYTES % (MANUAL) 8 %; MONOCYTES % (MANUAL) 11 %; NEUTROPHILS % (MANUAL) 81 %; RBC MORPH NORMAL
[2022-01-07 06:05] LABS: MAGNESIUM 1.7 MG/DL (1.6-2.4)
--- NOTE | 2022-01-07 07:25 | Progress Note - Surgery ---
ASTER RASMUSSEN 01/07/22 0725: Subjective Date Seen by a Provider: Jan 07, 2022 Time Seen by a Provider: 07:25 Subjective/Events-last exam 56 year old male admitted post op Laparoscopic hand-assisted colostomy takedown with end-to-end anastomosis, a 1-hour of lysis of adhesions, without complicat ions. Pt reports pain is 1/10 and has not had a bowel movement or passed flatus. Pt still has catheter in. Pt on ensure and ice chips only. Pt is on 2L oxygen NC. Pt has not tried to ambulate and denies nausea, vomiting, lightheadedness, dizziness, chest pain or SOB. No other complaints. Focused Exam Respiratory: Lungs Clear, Normal Breath Sounds, No Respiratory Distress Cardiovascular: Regular Rate, Rhythm, No Edema, Normal Peripheral Pulses Skin: normal color, warm/dry Objective Exam Vital Signs Date Time Temp Pulse Resp B/P (MAP) Pulse Ox O2 Delivery O2 Flow Rate FiO2 01/07/22 04:02 36.9 98 16 121/60 (80) 95 Nasal Cannula 2.00 01/07/22 00:00 37.2 99 16 124/66 (85) 95 Nasal Cannula 2.00 01/06/22 20:00 37.7 116 19 125/66 (85) 95 Nasal Cannula 2.00 01/06/22 15:48 98 Nasal Cannula 2.00 01/06/22 15:30 36.7 98 18 133/72 (92) 98 Nasal Cannula 2.00 01/06/22 14:35 36.4 90 16 138/79 (98) 95 Nasal Cannula 2.00 01/06/22 13:30 Nasal Cannula 2.00 01/06/22 13:15 Room Air 01/06/22 13:10 36.5 14 137/94 (108) 95 Room Air 01/06/22 13:00 14 142/82 (102) 97 Room Air 01/06/22 12:52 OxyMask 2.00 01/06/22 12:50 14 141/95 (110) 99 OxyMask 2.00 01/06/22 12:40 14 134/94 (107) 100 OxyMask 4.00 01/06/22 12:37 OxyMask 4.00 01/06/22 12:30 14 146/90 (108) 100 OxyMask 4.00 01/06/22 12:22 36.6 16 164/106 (125) 98 OxyMask 6.00 01/06/22 12:22 OxyMask 6.00 01/06/22 12:00 36.4 90 16 138/79 (98) 95 Nasal Cannula 2.00 01/06/22 07:20 98 Room Air 01/06/22 07:20 36.0 100 20 151/109 (123) 98 Room Air I & O 01/07/22 07:00 Intake Total 5680 ml Output Total 1100 ml Balance 4580 ml Capillary Refill : General Appearance: No Apparent Distress, WD/WN HEENT: PERRL/EOMI Respiratory: Chest Non Tender, Lungs Clear, Normal Breath Sounds, No Accessory Muscle Use, No Respiratory Distress Cardiovascular: Regular Rate, Rhythm, No Edema, Normal Peripheral Pulses Gastrointestinal: No guarding, No hepatomegaly, No spleenomegaly Neurologic/Psychiatric: Alert, Oriented x3 Skin: Normal Color, Warm/Dry Results Lab Laboratory Tests 01/07/22 05:36: White Blood Count 14.5H, Red Blood Count 4.78, Hemoglobin 15.1, Hematocrit 44, Mean Corpuscular Volume 92, Mean Corpuscular Hemoglobin 32, Mean Corpuscular Hemoglobin Concent 34, Red Cell Distribution Width 13.2, Platelet Count 180, Mean Platelet Volume 10.3, Immature Granulocyte % (Auto) 0, Neutrophils (%) (Auto) 80H, Lymphocytes (%) (Auto) 9L, Monocytes (%) (Auto) 10, Eosinophils (%) (Auto) 0, Basophils (%) (Auto) 0, Neutrophils # (Auto) 11.6H, Lymphocytes # (Auto) 1.3, Monocytes # (Auto) 1.5H, Eosinophils # (Auto) 0.0, Basophils # (Auto) 0.0, Immature Granulocyte # (Auto) 0.1, Neutrophils % (Manual) 81, Lymphocytes % (Manual) 8, Monocytes % (Manual) 11, Blood Morphology Comment NORMAL, Sodium Level 137, Potassium Level 4.2, Chloride Level 107, Carbon Dioxide Level 22, Anion Gap 8, Blood Urea Nitrogen 13, Creatinine 0.80, Estimat Glomerular Filtration Rate 103, BUN/Creatinine Ratio 16, Glucose Level 120H, Calcium Level 8.3L, Corrected Calcium 8.9, Magnesium Level 1.7, Total Bilirubin 0.5, Aspartate Amino Transf (AST/SGOT) 22, Alanine Aminotransferase (ALT/SGPT) 25, Alkaline Phosphatase 35L, Total Protein 5.4L, Albumin 3.2 Assessment/Plan Assessment/Plan Assessment/Plan Laparoscopic hand-assisted colostomy takedown with end-to-end anastomosis, a 1- hour of lysis of adhesions without complications Continue to monitor for pain, bowel movements/faltus Continue with ice chips and ensure only WEI LADD DO 01/07/22 1427: Subjective Subjective/Events-last exam Pain controlled. No flatus or bm. Using incentive spirometer some. Jimenez in place. Tolerating ice chips. Denies n/v fever sweats chills shortness of breath or chest pain. Objective Exam General Appearance: No Apparent Distress, WD/WN HEENT: PERRL/EOMI, Normal ENT Inspection Neck: Full Range of Motion, Normal Inspection Respiratory: Chest Non Tender, No Accessory Muscle Use, No Respiratory Distress Cardiovascular: Regular Rate, Rhythm, No JVD Gastrointestinal: non tender, soft, other (incisional tenderness) Extremity: Non Tender, No Calf Tenderness Neurologic/Psychiatric: Alert, Oriented x3 Skin: Normal Color, Warm/Dry Lymphatic: No Adenopathy Assessment/Plan Assessment/Plan Assessment/Plan Laparoscopic hand-assisted colostomy takedown with end-to-end anastomosis, a 1- hour of lysis of adhesions increase activity-discussed ambulation tid IS Dc jimenez Lovenox for dvt prophylaxis Gi prophylaxis await bowel function and will then advance diet. Supervisory-Addendum Brief Verification & Attestation Participated in pt care: history, MDM, physical Personally performed: exam, history, MDM, supervision of care Care discussed with: Medical Student Procedures: n/a Results interpretation: Verified all documentation Verification and Attestation of Medical Student E/M Service A medical student performed and documented this service in my presence. I reviewed and verified all information documented by the medical student and made modifications to such information, when appropriate. I personally performed the physical exam and medical decision making. Wei Ladd, Jan 07, 2022,14:27 ASTER RASMUSSEN Jan 07, 2022 07:25 WEI LADD DO Jan 07, 2022 14:27
[2022-01-07 07:42] VITALS: BP 142/74
[2022-01-07] MEDS: FAMOTIDINE 20MG/2ML IV (PEPCID) IVP SCH (09:22)
--- NOTE | 2022-01-07 10:51 | Physical Therapy Progress Note ---
Therapy Progress Note Patient and spouse decline skilled PT due to independent LOF. Patient reports he will walk in hallway when they take out his jimenez catheter. Spouse confirms. No skilled PT indicated. 1 visit SILVIA HUERTA PT Jan 07, 2022 10:51
[2022-01-07 11:26] VITALS: BP 136/76
[2022-01-07] MEDS: HYDROcodone/APAP 5 MG/325 MG (LORTAB) TAB PO PRN ×2 (12:27→19:40)
--- NOTE | 2022-01-07 12:55 | Consultation ---
KARLA TRUJILLO 01/07/22 1255: HPI History of Present Illness: HPI/Chief Complaint CC: s/p colostomy reversal HPI: Consultation requested by Dr. Rodriguez regarding Mr. Priyank Giron, 56 YO M with hx of perforated diverticulitis. Pt is x 1 day s/p laproscopic colostomy reversal with end to end anastamosis and 1 hour lysis of adhesions, without com plications. He has received cefazolin and metronidazole. Pt states his pain has significantly improved, but increases with transferring and ambulation. He has not yet had a bowel movement or passed flatus. He is on ice chip and ensure liquid only diet. Denies fever, chills, N/V, or chest pain. Source: patient, RN/MD Exam Limitations: no limitations Date Seen 01/07/22 Attending Physician Maria L Hilton DO PCP Admitting Physician: Ezekiel Rodriguez DO Attending Physician: Ezekiel Rodriguez DO Referring Physician Date of Admission Jan 06, 2022 at 06:49 Home Medications & Allergies Home Medications Reviewed patient Home Medication Reconciliation performed by pharmacy medication reconciliations pearl technician and/or nursing. Patients Allergies have been reviewed. Allergies Allergies Coded Allergies No Known Drug Allergies ([id number]/20/22) Past Leybrju-Gjyzvq-Cjyhmb Hx Patient Social History Marrital Status: Tobacco Use?: No Smoking Status: Never a Smoker Smokeless Tobacco Frequency: Never a User Use of E-Cig and/or Vaping dev: No Use of E-Cig and/or Vaping Vinicius: Never a User Substance use?: No Alcohol Use?: Yes Alcohol type: Beer, Wine Alcohol Frequency: Rarely Pt feels they are or have been: No Immunizations Up To Date Date of Influenza Vaccine: Dec 18, 2020 First/Initial COVID19 Vaccinat: 2020 Second COVID19 Vaccination Pardeep: 2020 Tetanus Booster (TDap): Unknown Hepatitis A: No Hepatitis B: No Seasonal Allergies Seasonal Allergies: Yes Current Status Advance Directives: No Advance Directive Location: Home Communicates: Verbally Primary Language: American Preferred Spoken Language: American Is interpretation needed?: No Implanted or Applied Medical D: None Past Medical History Currently Using CPAP: No Currently Using BIPAP: No Kidney Stones Diverticulosis Blood Disorders: No Family Medical History No Pertinent Family Hx Review of Systems Constitutional: No chills, No diaphoresis, No fever EENTM: No blurred vision, No throat pain Respiratory: No cough, No short of breath Cardiovascular: No chest pain, No edema, No syncope Gastrointestinal: abdominal pain (post operative pain, well controlled); No diarrhea, No nausea, No vomiting Genitourinary: No dysuria, No incontinence Musculoskeletal: No joint pain, No joint swelling Skin: No pruritus, No rash Psychiatric/Neurological: Denies Headache, Denies Numbness Physical Exam Physical Exam Vital Signs Vital Signs - First Documented 01/06/22 12:00 O2 Flow Rate 2.00 Capillary Refill : Height, Weight, BMI Height: '" Weight: lbs. oz. kg; 25.28 BMI Method: General Appearance: No Apparent Distress, WD/WN Eyes: Bilateral Eye PERRL, Bilateral Eye EOMI HEENT: PERRL/EOMI, Moist Mucous Membranes Neck: Non Tender, Supple Respiratory: Chest Non Tender, Lungs Clear, Normal Breath Sounds, No Accessory Muscle Use, No Respiratory Distress Cardiovascular: Regular Rate, Rhythm, No Edema, No Murmur, Normal Peripheral Pulses Gastrointestinal: Soft, Abnormal Bowel Sounds; No Distended, No Guarding; Other (Surgical inscisions intact, clean and dry. Hypoactive bowel sounds more so in lower abdomen then upper. ) Back: No CVA Tenderness; No Decreased Range of Motion Extremity: Non Tender, No Calf Tenderness, No Pedal Edema Neurologic/Psychiatric: Alert, Oriented x3 Skin: Normal Color, Warm/Dry Lymphatic: No Adenopathy Results Results/Procedures Labs Laboratory Tests 01/07/22 05:36 Patient resulted labs reviewed. Assessment/Plan Assessment and Plan Assess & Plan/Chief Complaint Assessment: S/p laparoscopic colostomy reversal with end-end anastomosis Hx of diverticulitis with perforation Plan: Pain management Monitor for bowel movements and flatus Ice chips and ensure liquid only Encourage PT and IS MARIA L HILTON DO 01/08/22 0515: Assessment/Plan Assessment and Plan Assess & Plan/Chief Complaint Monitor bowel function Supportive care Supervisory-Addendum Brief Verification & Attestation Participated in pt care: history, MDM, physical Personally performed: exam, history, MDM, supervision of care Care discussed with: Medical Student Procedures: n/a Results interpretation: Verified all documentation Verification and Attestation of Medical Student E/M Service A medical student performed and documented this service in my presence. I reviewed and verified all information documented by the medical student and made modifications to such information, when appropriate. I personally performed the physical exam and medical decision making. Maria L Hilton, Jan 08, 2022,05:14 KARLA TRUJILLO Jan 07, 2022 12:55 MARIA L HILTON DO Jan 08, 2022 05:15
--- NOTE | 2022-01-07 14:42 | Anesthesia-General Post-Op ---
General Patient Condition Mental Status/LOC: Same as Preop Cardiovascular: Satisfactory Nausea/Vomiting: Absent Respiratory: Satisfactory Pain: Controlled Complications: Absent Post Op Complications Complications None Follow Up Care/Instructions Patient Instructions None needed. Anesthesia/Patient Condition Patient Condition Patient is doing well, no complaints, stable vital signs, no apparent adverse anesthesia problems. No complications reported per nursing. LESLEE NORWOOD CRNA Jan 07, 2022 14:42
[2022-01-07] MEDS: ENOXAPARIN 40 MG/0.4 ML (LOVENOX) SYR SC SCH (14:56)
[2022-01-07 15:51] VITALS: BP 141/78
[2022-01-07 19:19] VITALS: BP 145/84
[2022-01-08] VITALS (7 sets, daily range): BP systolic 136–156; BP diastolic 69–90
--- NOTE | 2022-01-08 05:42 | Progress Note ---
Subjective Date Seen by a Provider: Jan 08, 2022 Time Seen by a Provider: 11:00 Subjective/Events-last exam Patient doing really well Ambulating well IV fluids will be decreased Advancing diet Passing flatus Review of Systems Gastrointestinal: Abdominal Pain Objective Exam Last Set of Vital Signs Vital Signs Date Time Temp Pulse Resp B/P (MAP) Pulse Ox O2 Delivery O2 Flow Rate FiO2 01/08/22 03:49 37.1 100 16 136/87 (103) 95 Room Air 01/07/22 07:24 0.00 Capillary Refill : I&O Intake and Output 01/08/22 00:00 Intake Total 3698 ml Output Total 2150 ml Balance 1548 ml Intake Oral 698 ml IV Total 3000 ml Output Urine Total 2150 ml # Voids 5 # Bowel Movements 1 General: Alert, Oriented X3, Cooperative, No Acute Distress Lungs: Clear to Auscultation, Normal Air Movement Heart: Regular Rate, Normal S1, Normal S2, No Murmurs Neuro: Normal Gait, Normal Speech, Strength at 5/5 X4 Ext, Normal Tone Psych/Mental Status: Mental Status NL, Mood NL Results Lab Microbiology 01/06/22 MRSA Screen - Final, Complete MRSA not isolated Assessment/Plan Assessment/Plan Assess & Plan/Chief Complaint Assessment: Colostomy takedown due to perforation 3 months ago Leukocytosis Plan: Ambulate Supportive care MARIBEL HILTON DO Jan 08, 2022 05:42
[2022-01-08] MEDS: LACTATED RINGERS 1,000 ML IV SCH ×2 (05:54→14:05)
[2022-01-08 06:00] LABS: BASOPHILS % (AUTO) 0 % (0-10); EOSINOPHILS % (AUTO) 0 % (0-10); HEMATOCRIT 45 % (40-54); HEMOGLOBIN 15.3 g/dL (13.3-17.7); LYMPHOCYTES # (AUTO) 1.8 10^3/uL (1.0-4.0); LYMPHOCYTES % (AUTO) 17 % (12-44); MEAN CORPUSCULAR HEMOGLOBIN 31 pg (25-34); MEAN CORPUSCULAR HGB CONC 34 g/dL (32-36); MEAN CORPUSCULAR VOLUME 92 fL (80-99); MEAN PLATELET VOLUME 10.6 fL (9.0-12.2); MONOCYTES % (AUTO) 9 % (0-12); NEUTROPHILS # (AUTO) 8.2 10^3/uL (1.8-7.8); NEUTROPHILS % (AUTO) 73 % (42-75); PLATELET COUNT 156 10^3/uL (130-400); WHITE BLOOD COUNT 11.1 10^3/uL (4.3-11.0)
[2022-01-08 06:07] LABS: ALBUMIN 3.4 GM/DL (3.2-4.5); POTASSIUM 3.7 MMOL/L (3.6-5.0)
[2022-01-08 06:08] LABS: CALCIUM 8.4 MG/DL (8.5-10.1)
[2022-01-08 06:09] LABS: TOTAL PROTEIN 6.6 GM/DL (6.4-8.2)
[2022-01-08 06:11] LABS: BILIRUBIN,TOTAL 0.8 MG/DL (0.1-1.0)
[2022-01-08 06:13] LABS: CREATININE SERUM 0.76 MG/DL (0.60-1.30)
[2022-01-08] MEDS: FAMOTIDINE 20MG/2ML IV (PEPCID) IVP SCH (09:57)
[2022-01-08] MEDS: HYDROcodone/APAP 5 MG/325 MG (LORTAB) TAB PO PRN ×2 (09:59→17:08)
--- NOTE | 2022-01-08 11:30 | Progress Note ---
Subjective Date Seen by a Provider: Jan 08, 2022 Time Seen by a Provider: 11:00 Subjective/Events-last exam doing better. pain controlled. had 2 BM's early this morning. ambulating well. Objective Exam Vital Signs Date Time Temp Pulse Resp B/P (MAP) Pulse Ox O2 Delivery O2 Flow Rate FiO2 01/08/22 07:57 37.3 105 18 156/89 (111) 94 Room Air 01/08/22 03:49 37.1 100 16 136/87 (103) 95 Room Air 01/08/22 00:00 37.1 99 16 141/69 (93) 94 Room Air 01/07/22 19:45 97 Room Air 01/07/22 19:19 37.7 77 18 145/84 (104) 97 Room Air 01/07/22 15:51 37.3 86 18 141/78 (99) 94 Room Air I & O 01/08/22 07:00 Intake Total 3268 ml Output Total 1200 ml Balance 2068 ml Capillary Refill : General Appearance: No Apparent Distress HEENT: PERRL/EOMI Neck: Full Range of Motion Respiratory: Chest Non Tender, Lungs Clear, Normal Breath Sounds Cardiovascular: Regular Rate, Rhythm Gastrointestinal: soft, tenderness, other (incisions clean/dry) Extremity: Normal Capillary Refill Neurologic/Psychiatric: Alert, Oriented x3 Skin: Normal Color Lymphatic: No Adenopathy Results Lab Laboratory Tests 01/08/22 05:23: White Blood Count 11.1H, Red Blood Count 4.89, Hemoglobin 15.3, Hematocrit 45, Mean Corpuscular Volume 92, Mean Corpuscular Hemoglobin 31, Mean Corpuscular Hemoglobin Concent 34, Red Cell Distribution Width 13.0, Platelet Count 156, Mean Platelet Volume 10.6, Immature Granulocyte % (Auto) 0, Neutrophils (%) (Auto) 73, Lymphocytes (%) (Auto) 17, Monocytes (%) (Auto) 9, Eosinophils (%) (Auto) 0, Basophils (%) (Auto) 0, Neutrophils # (Auto) 8.2H, Lymphocytes # (Au to) 1.8, Monocytes # (Auto) 1.0, Eosinophils # (Auto) 0.0, Basophils # (Auto) 0.0, Immature Granulocyte # (Auto) 0.0, Sodium Level 137, Potassium Level 3.7, Chloride Level 107, Carbon Dioxide Level 21, Anion Gap 9, Blood Urea Nitrogen 12, Creatinine 0.76, Estimat Glomerular Filtration Rate 104, BUN/Creatinine Ratio 16, Glucose Level 85, Calcium Level 8.4L, Corrected Calcium 8.9, Total Bilirubin 0.8, Aspartate Amino Transf (AST/SGOT) 20, Alanine Aminotransferase (ALT/SGPT) 22, Alkaline Phosphatase 38L, Total Protein 6.6, Albumin 3.4 Microbiology 01/06/22 MRSA Screen - Final, Complete MRSA not isolated Assessment/Plan Assessment/Plan Assess & Plan/Chief Complaint s/p colostomy reversal for perforated diverticulitis. having bowel fxn, will advance diet. cont ambulation. DENEEN WILDER MD Jan 08, 2022 11:30
[2022-01-08] MEDS: ENOXAPARIN 40 MG/0.4 ML (LOVENOX) SYR SC SCH (14:05)
[2022-01-09] MEDS: LACTATED RINGERS 1,000 ML IV SCH (02:50)
[2022-01-09 03:53] VITALS: BP 143/89
--- NOTE | 2022-01-09 05:31 | Progress Note ---
Subjective Date Seen by a Provider: Jan 09, 2022 Time Seen by a Provider: 11:00 Subjective/Events-last exam Patient doing really well Ready for discharge Review of Systems General: Fatigue, Malaise Gastrointestinal: Abdominal Pain Objective Exam Last Set of Vital Signs Vital Signs Date Time Temp Pulse Resp B/P (MAP) Pulse Ox O2 Delivery O2 Flow Rate FiO2 01/09/22 03:53 37.4 94 18 143/89 (107) 96 Room Air 01/07/22 07:24 0.00 Capillary Refill : I&O Intake and Output 01/09/22 00:00 Intake Total 2190 ml Balance 2190 ml Intake Oral 1190 ml IV Total 1000 ml # Voids 8 # Bowel Movements 4 General: Alert, Oriented X3, Cooperative, No Acute Distress Heart: Regular Rate, Normal S1, Normal S2, No Murmurs Abdomen: Normal Bowel Sounds, Soft, No Tenderness, No Hepatosplenomegaly, No Masses Psych/Mental Status: Mental Status NL, Mood NL Results Lab Microbiology 01/06/22 MRSA Screen - Final, Complete MRSA not isolated Assessment/Plan Assessment/Plan Assess & Plan/Chief Complaint Assessment: Colostomy takedown due to perforation 3 months ago Leukocytosis Plan: Ambulate Supportive care Discharge home MARIBEL HILTON DO Jan 09, 2022 05:31
[2022-01-09 05:53] LABS: BASOPHILS % (AUTO) 0 % (0-10); EOSINOPHILS # (AUTO) 0.1 10^3/uL (0.0-0.3); EOSINOPHILS % (AUTO) 1 % (0-10); HEMATOCRIT 42 % (40-54); HEMOGLOBIN 14.6 g/dL (13.3-17.7); LYMPHOCYTES # (AUTO) 1.4 10^3/uL (1.0-4.0); LYMPHOCYTES % (AUTO) 17 % (12-44); MEAN CORPUSCULAR HEMOGLOBIN 32 pg (25-34); MEAN CORPUSCULAR HGB CONC 35 g/dL (32-36); MEAN CORPUSCULAR VOLUME 91 fL (80-99); MEAN PLATELET VOLUME 10.7 fL (9.0-12.2); MONOCYTES % (AUTO) 12 % (0-12); NEUTROPHILS # (AUTO) 5.8 10^3/uL (1.8-7.8); NEUTROPHILS % (AUTO) 70 % (42-75); PLATELET COUNT 146 10^3/uL (130-400); WHITE BLOOD COUNT 8.3 10^3/uL (4.3-11.0)
[2022-01-09 06:06] LABS: ALBUMIN 3.4 GM/DL (3.2-4.5); POTASSIUM 3.8 MMOL/L (3.6-5.0)
[2022-01-09 06:07] LABS: CALCIUM 8.7 MG/DL (8.5-10.1)
[2022-01-09 06:08] LABS: TOTAL PROTEIN 6.1 GM/DL (6.4-8.2)
[2022-01-09 06:10] LABS: BILIRUBIN,TOTAL 1.1 MG/DL (0.1-1.0)
[2022-01-09 06:12] LABS: CREATININE SERUM 0.71 MG/DL (0.60-1.30)
[2022-01-09 07:17] VITALS: BP 143/86
[2022-01-09] MEDS: FAMOTIDINE 20MG/2ML IV (PEPCID) IVP SCH (08:40)
--- NOTE | 2022-01-09 10:41 | Progress Note ---
Subjective Date Seen by a Provider: Jan 09, 2022 Time Seen by a Provider: 10:20 Subjective/Events-last exam Patient seen with Dr. Velarde. Patient reports doing well today. Minimal pain, no nausea or vomiting. Tolerating diet. Ambulating and having BMs Objective Exam Vital Signs Date Time Temp Pulse Resp B/P (MAP) Pulse Ox O2 Delivery O2 Flow Rate FiO2 01/09/22 07:17 37.1 85 18 143/86 (105) 96 Room Air 01/09/22 03:53 37.4 94 18 143/89 (107) 96 Room Air 01/08/22 23:23 37.6 98 18 138/87 (104) 98 Room Air 01/08/22 21:00 Room Air 01/08/22 19:38 36.7 99 18 139/87 (104) 96 Room Air 01/08/22 15:41 36.6 101 16 150/90 (110) 97 Room Air 01/08/22 11:36 37.0 100 18 144/87 (106) 95 Room Air I & O 01/09/22 07:00 Intake Total 1340 ml Balance 1340 ml Capillary Refill : General Appearance: No Apparent Distress, WD/WN Neck: Normal Inspection, Supple Respiratory: No Accessory Muscle Use, No Respiratory Distress Gastrointestinal: normal bowel sounds, soft, tenderness, other (Abdominal incisions C/D/I with elmer in place, no signs of infection) Extremity: Normal Inspection, Normal Range of Motion Neurologic/Psychiatric: Alert, Oriented x3 Skin: Normal Color, Warm/Dry Results Lab Laboratory Tests 01/09/22 05:01: White Blood Count 8.3, Red Blood Count 4.61, Hemoglobin 14.6, Hematocrit 42, Mean Corpuscular Volume 91, Mean Corpuscular Hemoglobin 32, Mean Corpuscular Hemoglobin Concent 35, Red Cell Distribution Width 12.6, Platelet Count 146, Mean Platelet Volume 10.7, Immature Granulocyte % (Auto) 0, Neutrophils (%) (Auto) 70, Lymphocytes (%) (Auto) 17, Monocytes (%) (Auto) 12, Eosinophils (%) (Auto) 1, Basophils (%) (Auto) 0, Neutrophils # (Auto) 5.8, Lymphocytes # (Auto) 1.4, Monocytes # (Auto) 1.0, Eosinophils # (Auto) 0.1, Basophils # (Auto) 0.0, Immature Granulocyte # (Auto) 0.0, Sodium Level 137, Potassium Level 3.8, Chloride Level 106, Carbon Dioxide Level 21, Anion Gap 10, Blood Urea Nitrogen 10, Creatinine 0.71, Estimat Glomerular Filtration Rate 106, BUN/Creatinine Ratio 14, Glucose Level 85, Calcium Level 8.7, Corrected Calcium 9.2, Total Bilirubin 1.1H, Aspartate Amino Transf (AST/SGOT) 19, Alanine Aminotransferase (ALT/SGPT) 18, Alkaline Phosphatase 39L, Total Protein 6.1L, Albumin 3.4 Microbiology 01/06/22 MRSA Screen - Final, Complete MRSA not isolated Assessment/Plan Assessment/Plan Assess & Plan/Chief Complaint A 56 year old male who is s/p colostomy reversal for perforated diverticulitis. VSS having bowel function and tolerating diet Ambulating Will DC home and instruct patient to follow up with Dr. Rodriguez in 2 weeks for follow up MANUEL BOYLE APRN Jan 09, 2022 10:41
[2022-01-09] MEDS ORDERED: HYDR-3817 PO ×2 (10:44→11:18)
--- NOTE | 2022-01-09 10:44 | Discharge Inst-Surgical ---
D/C Lap Instructions-FLORENTINO Reconcile Patient Problems Problems Reviewed?: Yes New, Converted, or Re-Newed RX: RX on Chart Follow Up Appt in [address] Rodriguez Activity as tolerated No driving for 24 hours No driving while on pain medications Incentive Spirometry use every 2 hours while awake Regular Diet Symptoms to Report: Fever over 101 degree F, Nausea/Vomiting Infection Signs and Symptoms to report: Increased redness, Foul odor of wound, Increased drainage Bathing instructions: May shower Operative Area Clean/Dry; Keep incision clean/dry If any problems/questions: Contact your physician or go to Emergency Room MANUEL BOYLE APRN Jan 09, 2022 10:44
[2022-01-09 11:04] VITALS: BP 153/99
--- NOTE | 2022-01-09 11:18 | Discharge Summary ---
Diagnosis/Chief Complaint Date of Admission Jan 06, 2022 at 06:49 Date of Discharge Discharge Date: Jan 09, 2022 Discharge Diagnosis Assessment: S/p laparoscopic colostomy reversal with end-end anastomosis Leukocytosis Hyperlipidemia Seasonal allergies Hx of diverticulitis with perforation Discharge Summary Discharge Physical Examination Allergies: Coded Allergies: No Known Drug Allergies (Unverified , 01/06/22) Vitals & I&Os Vital Signs Date Time Temp Pulse Resp B/P (MAP) Pulse Ox O2 Delivery O2 Flow Rate FiO2 01/09/22 11:36 37.1 101 18 153/99 97 Room Air 0.00 General Appearance: Alert, Oriented X3, Cooperative Respiratory: Clear to Auscultation Cardiovascular: Regular Rate Abdominal: Normal Bowel Sounds Psych/Mental Status: Mental Status NL Hospital Course Was the Problem List Reviewed?: Yes Hospital course: Patient had an uneventful hospital course after he had his colostomy takedown by Dr. Rodriguez. Patient recovered bowel function quickly with ambulation. Leukocytosis resolved. Overall he was doing very well and discharged improved condition. Labs (last 24 hrs) Laboratory Tests 01/07/22 05:36: White Blood Count 14.5H, Red Blood Count 4.78, Hemoglobin 15.1, Hematocrit 44, Mean Corpuscular Volume 92, Mean Corpuscular Hemoglobin 32, Mean Corpuscular Hemoglobin Concent 34, Red Cell Distribution Width 13.2, Platelet Count 180, Mean Platelet Volume 10.3, Immature Granulocyte % (Auto) 0, Neutrophils (%) (Auto) 80H, Lymphocytes (%) (Auto) 9L, Monocytes (%) (Auto) 10, Eosinophils (%) (Auto) 0, Basophils (%) (Auto) 0, Neutrophils # (Auto) 11.6H, Lymphocytes # (Auto) 1.3, Monocytes # (Auto) 1.5H, Eosinophils # (Auto) 0.0, Basophils # (Auto) 0.0, Immature Granulocyte # (Auto) 0.1, Neutrophils % (Manual) 81, Lymphocytes % (Manual) 8, Monocytes % (Manual) 11, Blood Morphology Comment NORMAL, Sodium Level 137, Potassium Level 4.2, Chloride Level 107, Carbon Dioxide Level 22, Anion Gap 8, Blood Urea Nitrogen 13, Creatinine 0.80, Estimat Glomerular Filtration Rate 103, BUN/Creatinine Ratio 16, Glucose Level 120H, Calcium Level 8.3L, Corrected Calcium 8.9, Magnesium Level 1.7, Total Bilirubin 0.5, Aspartate Amino Transf (AST/SGOT) 22, Alanine Aminotransferase (ALT/SGPT) 25, Alkaline Phosphatase 35L, Total Protein 5.4L, Albumin 3.2 01/08/22 05:23: White Blood Count 11.1H, Red Blood Count 4.89, Hemoglobin 15.3, Hematocrit 45, Mean Corpuscular Volume 92, Mean Corpuscular Hemoglobin 31, Mean Corpuscular Hemoglobin Concent 34, Red Cell Distribution Width 13.0, Platelet Count 156, Mean Platelet Volume 10.6, Immature Granulocyte % (Auto) 0, Neutrophils (%) (Auto) 73, Lymphocytes (%) (Auto) 17, Monocytes (%) (Auto) 9, Eosinophils (%) (Auto) 0, Basophils (%) (Auto) 0, Neutrophils # (Auto) 8.2H, Lymphocytes # (Auto) 1.8, Monocytes # (Auto) 1.0, Eosinophils # (Auto) 0.0, Basophils # (Auto) 0.0, Immature Granulocyte # (Auto) 0.0, Sodium Level 137, Potassium Level 3.7, Chloride Level 107, Carbon Dioxide Level 21, Anion Gap 9, Blood Urea Nitrogen 12, Creatinine 0.76, Estimat Glomerular Filtration Rate 104, BUN/Creatinine Ratio 16, Glucose Level 85, Calcium Level 8.4L, Corrected Calcium 8.9, Total Bilirubin 0.8, Aspartate Amino Transf (AST/SGOT) 20, Alanine Aminotransferase (ALT/SGPT) 22, Alkaline Phosphatase 38L, Total Protein 6.6, Albumin 3.4 01/09/22 05:01: White Blood Count 8.3, Red Blood Count 4.61, Hemoglobin 14.6, Hematocrit 42, Mean Corpuscular Volume 91, Mean Corpuscular Hemoglobin 32, Mean Corpuscular Hemoglobin Concent 35, Red Cell Distribution Width 12.6, Platelet Count 146, Mean Platelet Volume 10.7, Immature Granulocyte % (Auto) 0, Neutrophils (%) (Auto) 70, Lymphocytes (%) (Auto) 17, Monocytes (%) (Auto) 12, Eosinophils (%) (Auto) 1, Basophils (%) (Auto) 0, Neutrophils # (Auto) 5.8, Lymphocytes # (Auto) 1.4, Monocytes # (Auto) 1.0, Eosinophils # (Auto) 0.1, Basophils # (Auto) 0.0, Immature Granulocyte # (Auto) 0.0, Sodium Level 137, Potassium Level 3.8, Chloride Level 106, Carbon Dioxide Level 21, Anion Gap 10, Blood Urea Nitrogen 10, Creatinine 0.71, Estimat Glomerular Filtration Rate 106, BUN/Creatinine Ratio 14, Glucose Level 85, Calcium Level 8.7, Corrected Calcium 9.2, Total Bilirubin 1.1H, Aspartate Amino Transf (AST/SGOT) 19, Alanine Aminotransferase (ALT/SGPT) 18, Alkaline Phosphatase 39L, Total Protein 6.1L, Albumin 3.4 Microbiology 01/06/22 MRSA Screen - Final, Complete MRSA not isolated Pending Labs Microbiology Date/Time Source Procedure Growth Status 01/06/22 07:25 Nasal MRSA Screen - Final MRSA not isolated Complete Laboratory Tests 01/07/22 05:36: White Blood Count 14.5, Red Blood Count 4.78, Hemoglobin 15.1, Hematocrit 44, Mean Corpuscular Volume 92, Mean Corpuscular Hemoglobin 32, Mean Corpuscular Hemoglobin Concent 34, Red Cell Distribution Width 13.2, Platelet Count 180, Mean Platelet Volume 10.3, Immature Granulocyte % (Auto) 0, Neutrophils (%) (Auto) 80, Lymphocytes (%) (Auto) 9, Monocytes (%) (Auto) 10, Eosinophils (%) (Auto) 0, Basophils (%) (Auto) 0, Neutrophils # (Auto) 11.6, Lymphocytes # (Auto) 1.3, Monocytes # (Auto) 1.5, Eosinophils # (Auto) 0.0, Basophils # (Auto) 0.0, Immature Granulocyte # (Auto) 0.1, Neutrophils % (Manual) 81, Lymphocytes % (Manual) 8, Monocytes % (Manual) 11, Blood Morphology Comment NORMAL, Sodium Level 137, Potassium Level 4.2, Chloride Level 107, Carbon Dioxide Level 22, Anion Gap 8, Blood Urea Nitrogen 13, Creatinine 0.80, Estimat Glomerular Filtration Rate 103, BUN/Creatinine Ratio 16, Glucose Level 120, Calcium Level 8 .3, Corrected Calcium 8.9, Magnesium Level 1.7, Total Bilirubin 0.5, Aspartate Amino Transf (AST/SGOT) 22, Alanine Aminotransferase (ALT/SGPT) 25, Alkaline Phosphatase 35, Total Protein 5.4, Albumin 3.2 01/08/22 05:23: White Blood Count 11.1, Red Blood Count 4.89, Hemoglobin 15.3, Hematocrit 45, Mean Corpuscular Volume 92, Mean Corpuscular Hemoglobin 31, Mean Corpuscular Hemoglobin Concent 34, Red Cell Distribution Width 13.0, Platelet Count 156, Mean Platelet Volume 10.6, Immature Granulocyte % (Auto) 0, Neutrophils (%) (Auto) 73, Lymphocytes (%) (Auto) 17, Monocytes (%) (Auto) 9, Eosinophils (%) (Auto) 0, Basophils (%) (Auto) 0, Neutrophils # (Auto) 8.2, Lymphocytes # (Auto) 1.8, Monocytes # (Auto) 1.0, Eosinophils # (Auto) 0.0, Basophils # (Auto) 0.0, Immature Granulocyte # (Auto) 0.0, Sodium Level 137, Potassium Level 3.7, Chloride Level 107, Carbon Dioxide Level 21, Anion Gap 9, Blood Urea Nitrogen 12, Creatinine 0.76, Estimat Glomerular Filtration Rate 104, BUN/Creatinine Ratio 16, Glucose Level 85, Calcium Level 8.4, Corrected Calcium 8.9, Total Bilirubin 0.8, Aspartate Amino Transf (AST/SGOT) 20, Alanine Aminotransferase (ALT/SGPT) 22, Alkaline Phosphatase 38, Total Protein 6.6, Albumin 3.4 01/09/22 05:01: White Blood Count 8.3, Red Blood Count 4.61, Hemoglobin 14.6, Hematocrit 42, Mean Corpuscular Volume 91, Mean Corpuscular Hemoglobin 32, Mean Corpuscular Hemoglobin Concent 35, Red Cell Distribution Width 12.6, Platelet Count 146, Mean Platelet Volume 10.7, Immature Granulocyte % (Auto) 0, Neutrophils (%) (Auto) 70, Lymphocytes (%) (Auto) 17, Monocytes (%) (Auto) 12, Eosinophils (%) (Auto) 1, Basophils (%) (Auto) 0, Neutrophils # (Auto) 5.8, Lymphocytes # (Auto) 1.4, Monocytes # (Auto) 1.0, Eosinophils # (Auto) 0.1, Basophils # (Auto) 0.0, Immature Granulocyte # (Auto) 0.0, Sodium Level 137, Potassium Level 3.8, Chloride Level 106, Carbon Dioxide Level 21, Anion Gap 10, Blood Urea Nitrogen 10, Creatinine 0.71, Estimat Glomerular Filtration Rate 106, BUN/Creatinine Ratio 14, Glucose Level 85, Calcium Level 8.7, Corrected Calcium 9.2, Total Bilirubin 1.1, Aspartate Amino Transf (AST/SGOT) 19, Alanine Aminotransferase (ALT/SGPT) 18, Alkaline Phosphatase 39, Total Protein 6.1, Albumin 3.4 Discharge Home Medications: Active Scripts Active Hydrocodone-Acetamin 7.5-325 (Hydrocodone/Acetaminophen) 7.5 Mg-325 Mg Tablet 1 Each PO BID PRN Reported Zyrtec (Cetirizine HCl) 10 Mg Capsule 10 Mg PO DAILY Instructions to patient/family Please see electronic discharge instructions given to patient. MARIBEL HILTON DO Jan 09, 2022 11:18
[2022-01-09 11:36] VITALS: BP 153/99
== END 2022-01-09 11:40 | disposition home or self-care (01) | DRG 345 ==
LOC: 4TH 06:49 → SURG 06:50 → 4TH 13:23
PROVIDERS: ADMIT Surgery; ATTEND Surgery
PROC: 0DSK0ZZ Reposition Ascending Colon, Open Approach (ICD-10-PCS; principal; 2022-01-06 09:26)
PROC: 0D7N8ZZ Dilation of Sigmoid Colon, Via Natural or Artificial Opening Endoscopic (ICD-10-PCS; 2022-01-06 09:26)
DX: Z43.3 Encounter for attention to colostomy (principal); K56.600 Partial intestinal obstruction, unspecified as to cause; D72.829 Elevated white blood cell count, unspecified; E78.5 Hyperlipidemia, unspecified; J30.2 Other seasonal allergic rhinitis
CPT/HCPCS: 36415; 80053; 83735; 85007; 85025; 85027; 86850; 86900; 86901; 87081; 94664